=== PATIENT | male | born 1975 | race Caucasian/White ===

== ENCOUNTER 2016-05-16 12:38 | Observation (INO) | payer OTHER ==
[~2016-05-16] VITALS: Ht 177.8 cm; Wt 100.0 kg
[~2016-05-16 12:38] MED LIST: LACTATED RINGER'S 1000 ML INJ 1,000 ML IV ONE; ONDANSETRON HCL 4 MG/2 ML VIAL IV PUSH ONE; PROPOFOL 200 MG/20 ML AMP IV ONE
[2016-05-16 12:40] VITALS: BP 141/76; PULSE 74; RESP 16; TEMP 98.2; O2SAT 98
--- NOTE | 2016-05-16 12:58 | PD ---
HPI Chief Complaint: Laceration/Skin Injury Time Seen by Provider: 12:58 Travel History International Travel<30 days: No Contact w/Intl Traveler<30days: No Traveled to known affect area: No History of Present Illness HPI 41-year-old male presents to emergency department with worker's comp injury. 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 Bleeding is controlled upon arrival. Pain is currently minimal. Patient denies numbness or tingling distal to the wound. Patient denies any loss of function distal to the wound. He has no other injury. Patient last ate or drank approximately 6 AM this morning. Patient is unknown his last tetanus shot. Patient has no known drug allergies. FORMERLY [facility], [facility] Past Medical History Tetanus Vaccination: Unknown Social History Alcohol Use: Yes Tobacco Use: No Substance Use: No Allergies-Medications (Allergen,Severity, Reaction): Coded Allergies: No Known Allergies (Unverified , 05/16/16) Reported Meds & Prescriptions Reported Meds & Active Scripts Active No Active Prescriptions or Reported Medications Review of Systems Except as stated in HPI: all other systems reviewed are Neg General / Constitutional: No: Fever Eyes: No: Visual changes HENT: No: Headaches Cardiovascular: No: Chest Pain or Discomfort Respiratory: No: Shortness of Breath Gastrointestinal: No: Abdominal Pain Genitourinary: No: Dysuria Musculoskeletal: No: Pain Skin: Positive Lesions (laceration right posterior lateral elbow.), No Rash Neurologic: No: Weakness Psychiatric: No: Depression Endocrine: No: Polydipsia Hematologic/Lymphatic: No: Easy Bruising Physical Exam Narrative GENERAL: Patient appears in no acute distress. SKIN: Warm and dry. Normal color. Normal turgor. Patient has a foreign half centimeter linear laceration diagonally across the posterior lateral elbow. It appears to be full-thickness and possibly into the joint space between the distal humerus and radius. Bleeding is minimal at this time. No foreign body or material noted. HEAD: Atraumatic. Normocephalic. EYES: Pupils equal and round. No scleral icterus. No injection or drainage. ENT: No nasal bleeding or discharge. Mucous membranes pink and moist. Pharynx is clear. NECK: Trachea midline. No JVD. CARDIOVASCULAR: Regular rate and rhythm. RESPIRATORY: No accessory muscle use. Clear to auscultation. Breath sounds equal bilaterally. GASTROINTESTINAL: Abdomen soft, non-tender, nondistended. Hepatic and splenic margins not palpable. MUSCULOSKELETAL: Extremities without clubbing, cyanosis, or edema. No obvious deformities. Patient has full range of motion of the right upper extremity neurovascular exam is unremarkable in the right upper extremity. International Affairs Vice President strength is normal. Supination and pronation of the right upper extremity is normal. NEUROLOGICAL: Awake and alert. No obvious cranial nerve deficits. Motor grossly within normal limits. Five out of 5 muscle strength in the arms and legs. Normal speech. PSYCHIATRIC: Appropriate mood and affect; insight and judgment normal. Data Data Last Documented VS Vital Signs Date Time Temp Pulse Resp B/P Pulse Ox O2 Delivery O2 Flow Rate FiO2 05/16/16 12:40 98.2 74 16 141/76 98 Orders Elbow, Complete (4 Vws) (05/16/16 13:20) Ice/Cold Pack (05/16/16 13:20) Basic Metabolic Panel (Bmp) (05/16/16 13:20) Complete Blood Count With Diff (05/16/16 13:20) Iv Access Insert/Monitor (05/16/16 13:20) Cefazolin Inj (Ancef Inj) (05/16/16 13:30) Tetanus/Diphtheria Tox Adult (Tetanus/Di (05/16/16 13:30) Place In Observation (05/16/16 ) Vital Signs (Adult) Q4H (05/16/16 16:09) Diet Npo (05/16/16 Dinner) Sodium Chlor 0.9% 1000 Ml Inj (Ns 1000 M (05/16/16 17:00) Sodium Chloride 0.9% Flush (Ns Flush) (05/16/16 16:15) Sodium Chloride 0.9% Flush (Ns Flush) (05/16/16 21:00) Acetaminophen (Tylenol) (05/16/16 16:15) Ondansetron Inj (Zofran Inj) (05/16/16 16:15) Prochlorperazine Supp (Compazine Supp) (05/16/16 16:15) Bisacodyl Supp (Dulcolax Supp) (05/16/16 16:15) Basic Metabolic Panel (Bmp) (05/17/16 06:00) Comprehensive Metabolic Panel (05/17/16 06:00) Ot Request For Service (05/16/16 16:09) Scd Bilateral/Knee High KM.BID (05/16/16 16:09) Jules Bilateral/Knee High KM.QSHIFT (05/16/16 16:09) Consult Orthopedic (05/16/16 ) Admit Order (Ed Use Only) (05/16/16 16:10) Labs Laboratory Tests Test 05/16/16 13:55 White Blood Count 5.8 TH/MM3 Red Blood Count 4.77 MIL/MM3 Hemoglobin 13.7 GM/DL Hematocrit 40.3 % Mean Corpuscular Volume 84.5 FL Mean Corpuscular Hemoglobin 28.7 PG Mean Corpuscular Hemoglobin 33.9 % Concent Red Cell Distribution Width 12.8 % Platelet Count 262 TH/MM3 Mean Platelet Volume 8.5 FL Neutrophils (%) (Auto) 63.8 % Lymphocytes (%) (Auto) 28.8 % Monocytes (%) (Auto) 5.4 % Eosinophils (%) (Auto) 1.5 % Basophils (%) (Auto) 0.5 % Neutrophils # (Auto) 3.7 TH/MM3 Lymphocytes # (Auto) 1.7 TH/MM3 Monocytes # (Auto) 0.3 TH/MM3 Eosinophils # (Auto) 0.1 TH/MM3 Basophils # (Auto) 0.0 TH/MM3 CBC Comment DIFF FINAL Differential Comment Sodium Level 139 MEQ/L Potassium Level 4.0 MEQ/L Chloride Level 104 MEQ/L Carbon Dioxide Level 28.1 MEQ/L Anion Gap 7 MEQ/L Blood Urea Nitrogen 10 MG/DL Creatinine 0.84 MG/DL Estimat Glomerular Filtration 101 ML/MIN Rate Random Glucose 89 MG/DL Calcium Level 8.9 MG/DL [facility] Medical Decision Making Medical Screen Exam Complete: Yes Emergency Medical Condition: Yes Differential Diagnosis Worker's comp injury. Laceration to the right elbow. Possible involvement of the joint space. Narrative Course Patient is medically stable at time of exam. Patient is discussed and examined with Dr. Patrick who recommends orthopedic evaluation. X-ray is obtained of the right elbow. IV access is obtained, and CBC and basic metabolic panel is ordered. Patient is given a tetanus 0.5 mg IM. Patient is given 2 g of Ancef IV. Call was placed to Dr. Montano, the orthopedic on-call the patient is discussed. Dr. Montano said he would like the patient admitted for OR closure. Call was placed to the hospitalist. Patient was discussed with Dr. Estrella, who admitted the patient to observation. Diagnosis Primary Impression: Laceration of elbow, right, complicated Qualified Code: S51.011A - Laceration of elbow, right, complicated, initial encounter Admitting Information Admitting Physician Requests: Observation Scripts No Active Prescriptions or Reported Meds Condition: Stable Sunday Olmos May 16, 2016 12:58
--- NOTE | 2016-05-16 13:14 | PD ---
Data Data Last Documented VS Vital Signs Date Time Temp Pulse Resp B/P Pulse Ox O2 Delivery O2 Flow Rate FiO2 05/16/16 12:40 98.2 74 16 141/76 98 Orders Elbow, Complete (4 Vws) (05/16/16 13:20) Ice/Cold Pack (05/16/16 13:20) Basic Metabolic Panel (Bmp) (05/16/16 13:20) Complete Blood Count With Diff (05/16/16 13:20) Iv Access Insert/Monitor (05/16/16 13:20) Cefazolin Inj (Ancef Inj) (05/16/16 13:30) Tetanus/Diphtheria Tox Adult (Tetanus/Di (05/16/16 13:30) Place In Observation (05/16/16 ) Vital Signs (Adult) Q4H (05/16/16 16:09) Diet Npo (05/16/16 Dinner) Sodium Chlor 0.9% 1000 Ml Inj (Ns 1000 M (05/16/16 17:00) Sodium Chloride 0.9% Flush (Ns Flush) (05/16/16 16:15) Sodium Chloride 0.9% Flush (Ns Flush) (05/16/16 21:00) Acetaminophen (Tylenol) (05/16/16 16:15) Ondansetron Inj (Zofran Inj) (05/16/16 16:15) Prochlorperazine Supp (Compazine Supp) (05/16/16 16:15) Bisacodyl Supp (Dulcolax Supp) (05/16/16 16:15) Basic Metabolic Panel (Bmp) (05/17/16 06:00) Comprehensive Metabolic Panel (05/17/16 06:00) Ot Request For Service (05/16/16 16:09) Scd Bilateral/Knee High KM.BID (05/16/16 16:09) Jules Bilateral/Knee High KM.QSHIFT (05/16/16 16:09) Consult Orthopedic (05/16/16 ) Admit Order (Ed Use Only) (05/16/16 16:10) Labs Laboratory Tests Test 05/16/16 13:55 White Blood Count 5.8 TH/MM3 Red Blood Count 4.77 MIL/MM3 Hemoglobin 13.7 GM/DL Hematocrit 40.3 % Mean Corpuscular Volume 84.5 FL Mean Corpuscular Hemoglobin 28.7 PG Mean Corpuscular Hemoglobin 33.9 % Concent Red Cell Distribution Width 12.8 % Platelet Count 262 TH/MM3 Mean Platelet Volume 8.5 FL Neutrophils (%) (Auto) 63.8 % Lymphocytes (%) (Auto) 28.8 % Monocytes (%) (Auto) 5.4 % Eosinophils (%) (Auto) 1.5 % Basophils (%) (Auto) 0.5 % Neutrophils # (Auto) 3.7 TH/MM3 Lymphocytes # (Auto) 1.7 TH/MM3 Monocytes # (Auto) 0.3 TH/MM3 Eosinophils # (Auto) 0.1 TH/MM3 Basophils # (Auto) 0.0 TH/MM3 CBC Comment DIFF FINAL Differential Comment Sodium Level 139 MEQ/L Potassium Level 4.0 MEQ/L Chloride Level 104 MEQ/L Carbon Dioxide Level 28.1 MEQ/L Anion Gap 7 MEQ/L Blood Urea Nitrogen 10 MG/DL Creatinine 0.84 MG/DL Estimat Glomerular Filtration 101 ML/MIN Rate Random Glucose 89 MG/DL Calcium Level 8.9 MG/DL MDM Supervised Visit with ALFRED: Yes Narrative Course I, Dr. Patrick, have reviewed the advance practice practitioner's documentation and am in agreement, met with the patient face to face, made the diagnosis, and the medical decision making was done by me. *My assessment and Findings: I reviewed the documentation from ALFRED, Patient on my examination there is at least 3 layers involved in this laceration, skin, fascia and a deep tissue either tendon or possibly the joint capsule itself. Orthopedics has been consulted, Ancef is given. Diagnosis Primary Impression: Laceration of elbow, right, complicated Qualified Code: S51.011A - Laceration of elbow, right, complicated, initial encounter Admitting Information Admitting Physician Requests: Observation Scripts No Active Prescriptions or Reported Meds Condition: Stable Puneet Patrick MD May 16, 2016 13:14
[2016-05-16] MEDS ORDERED: TETANUS/DIPHTHERIA TOXOID ADULT 0.5 ML VIAL IM ONE (13:30)
--- NOTE | 2016-05-16 14:07 | RADRPT ---
EXAM DATE/TIME: 05/16/2016 13:43 [facility] COMPARISON: No previous studies available for comparison. INDICATIONS : Patient states laceration from a metal object to the posterior elbow. MEDICAL HISTORY : None. SURGICAL HISTORY : None. ENCOUNTER: Initial ACUITY: 1 day PAIN SCORE: 4/10 LOCATION: Right Elbow FINDINGS: Multiple view examination of the right elbow demonstrates no soft tissue swelling, joint effusion, or fracture. The osseous structures are in normal alignment. Dressing is identified over the olecranon process. There is no evidence radiopaque foreign body. Bony mineralization is normal. CONCLUSION: No evidence of acute bony abnormality or radiopaque foreign body. Demetrius Alberts MD on May 16, 2016 at 14:04 Board Certified Radiologist. This report was verified electronically.
[2016-05-16 14:17] LABS: AUTOMATED NEUTROPHIL # 3.7 TH/MM3 (1.8-7.7); BASOPHIL % 0.5 % (0.0-2.0); EOSINOPHIL # 0.1 TH/MM3 (0-0.4); EOSINOPHIL % 1.5 % (0.0-4.0); HEMATOCRIT 40.3 % (39.0-51.0); HEMO FLAGS DIFF FINAL; LYMPH % 28.8 % (9.0-44.0); LYMPHOCYTE # 1.7 TH/MM3 (1.0-4.8); MEAN CELL VOLUME 84.5 FL (80.0-100.0); MEAN CORPUSCULAR HEMOGLOBIN 28.7 PG (27.0-34.0); MEAN CORPUSCULAR HGB CONC 33.9 % (32.0-36.0); MONO % 5.4 % (0.0-8.0); NEUT % 63.8 % (16.0-70.0); PLATELET COUNT 262 TH/MM3 (150-450); RED BLOOD COUNT 4.77 MIL/MM3 (4.50-5.90); RED CELL DISTRIBUTION WIDTH 12.8 % (11.6-17.2); WHITE BLOOD COUNT 5.8 TH/MM3 (4.0-11.0)
[2016-05-16 14:29] LABS: BICARBONATE 28.1 MEQ/L (21.0-32.0)
[2016-05-16] MEDS ORDERED: ONDANSETRON HCL 4 MG/2 ML VIAL IVP PRN (16:15)
[2016-05-16] MEDS ORDERED: SODIUM CHLORIDE 0.9% FLUSH 5 ML FLUSH FLUSH PRN (16:15)
[2016-05-16] MEDS ORDERED: BISACODYL 10 MG SUPP PR PRN (16:15)
[2016-05-16] MEDS ORDERED: ACETAMINOPHEN 325 MG TAB PO PRN (16:15)
[2016-05-16] MEDS ORDERED: PROCHLORPERAZINE 25 MG SUPP PR PRN (16:15)
[2016-05-16] MEDS ORDERED: ACETAMINOPHEN/HYDROcodone 325 MG/5 MG TAB PO PRN (16:45)
[2016-05-16] MEDS ORDERED: NALOXONE HCL 0.4 MG/ML AMP IV PRN (16:45)
[2016-05-16] MEDS ORDERED: HYDROmorphone HCL PF 1 MG/ML VIAL IV PRN (16:45)
[2016-05-16] MEDS ORDERED: ACETAMINOPHEN/HYDROcodone 325 MG/7.5 MG TAB PO PRN (16:45)
--- NOTE | 2016-05-16 16:45 | HHI.HP ---
[facility] Primary [facility] Physician No Primary Care Physician Admission Diagnosis Deep Laceration Right Elbow Diagnoses: Chief Complaint: pain post lacaration at work Travel History International Travel<30 Days: No Contact w/Intl Traveler <30 Da: No Traveled to Known Affected Are: No History of Present Illness 41-year-old male without PMH presents to emergency department with worker's comp injury. 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 Bleeding is controlled upon arrival. Pain is currently minimal. Patient denies numbness or tingling distal to the wound. he can move his fingers. Patient denies any loss of function distal to the wound. He has no other injury. Patient last ate or drank approximately 6 AM this morning. Patient is unknown his last tetanus shot. he did receive tetanus vaccination in the ED and also received IV abx Patient has no known drug allergies. Ortho was consulted and plan to keep patient NPO as will go to OR today. Review of Systems Except as stated in HPI: all other systems reviewed are Neg 12 system ROS reviewed and negative except as stated in HPI Past Family Social History Past Medical History Healthy Past Surgical History Denies having any surgeries in the past Reported Medications doesn't take any medications Allergies: Coded Allergies: No Known Allergies (Unverified , 05/16/16) Family History Parents are healthy Social History Denies alcohol use, illicit drug use or tobacco use. Physical Exam Vital Signs Vital Signs Date Time Temp Pulse Resp B/P Pulse Ox O2 Delivery O2 Flow Rate FiO2 05/16/16 12:40 98.2 74 16 141/76 98 Physical Exam GENERAL: This is a well-nourished, well-developed patient, in no apparent distress. SKIN: Right elbow laceration with dressing placed in the ER HEAD: Atraumatic. Normocephalic. No temporal or scalp tenderness. EYES: Pupils equal round and reactive. Extraocular motions intact. No scleral icterus. No injection or drainage. ENT: Nose without bleeding, purulent drainage or septal hematoma. Throat without erythema, tonsillar hypertrophy or exudate. Uvula midline. Airway patent. NECK: Trachea midline. No JVD or lymphadenopathy. Supple, nontender, no meningeal signs. CARDIOVASCULAR: Regular rate and rhythm without murmurs, gallops, or rubs. RESPIRATORY: Clear to auscultation. Breath sounds equal bilaterally. No wheezes , rales, or rhonchi. GASTROINTESTINAL: Abdomen soft, non-tender, nondistended. No hepato-splenomegaly , or palpable masses. No guarding. MUSCULOSKELETAL: Extremities without clubbing, cyanosis, or edema. No joint tenderness, effusion, or edema noted. No calf tenderness. Negative Homans sign bilaterally. NEUROLOGICAL: Awake and alert. Cranial nerves II through XII intact. Motor and sensory grossly within normal limits. Five out of 5 muscle strength in all muscle groups. Normal speech. Laboratory Laboratory Tests Test 05/16/16 13:55 White Blood Count 5.8 Red Blood Count 4.77 Hemoglobin 13.7 Hematocrit 40.3 Mean Corpuscular Volume 84.5 Mean Corpuscular Hemoglobin 28.7 Mean Corpuscular Hemoglobin 33.9 Concent Red Cell Distribution Width 12.8 Platelet Count 262 Mean Platelet Volume 8.5 Neutrophils (%) (Auto) 63.8 Lymphocytes (%) (Auto) 28.8 Monocytes (%) (Auto) 5.4 Eosinophils (%) (Auto) 1.5 Basophils (%) (Auto) 0.5 Neutrophils # (Auto) 3.7 Lymphocytes # (Auto) 1.7 Monocytes # (Auto) 0.3 Eosinophils # (Auto) 0.1 Basophils # (Auto) 0.0 CBC Comment DIFF FINAL Differential Comment Sodium Level 139 Potassium Level 4.0 Chloride Level 104 Carbon Dioxide Level 28.1 Anion Gap 7 Blood Urea Nitrogen 10 Creatinine 0.84 Estimat Glomerular Filtration 101 Rate Random Glucose 89 Calcium Level 8.9 Result Diagram: 05/16/16 1355 05/16/16 1355 Assessment and Plan Assessment and Plan Worker's comp injury. Laceration to the right elbow. Possible involvement of the joint space. Patient is medically stable, labs normal X-ray is obtained of the right elbow. Received tetanus 0.5 mg IM in the ED Patient is given 2 g of Ancef IV. Ortho was consulted Dr. Montano, Dr. Montano recommends NPO and will take the patient to OR for closure today . DVT ppx SCD/teds Shraddha Estrella MD May 16, 2016 16:45
[2016-05-16] MEDS: SODIUM CHLOR 0.9% 1000 ML INJ 1,000 ML IV SCH (17:00)
[2016-05-16] MEDS ORDERED: GENTAMICIN SULFATE 80 MG/2 ML VIAL ONE (17:11)
[2016-05-16] MEDS ORDERED: *MEPERIDINE 25 MG INJ VIAL PERIprocedural Use ONLY ONE (19:21)
[2016-05-16] MEDS ORDERED: fentaNYL CITRATE 250 MCG/5 ML AMP ONE (19:24)
--- NOTE | 2016-05-16 20:02 | PD.CONS ---
cc: Emery Encinas Jr., MD HPI [facility] Consult Requested By Primary Care Physician No Primary Care Physician Admission Diagnosis Deep Laceration Right Elbow Diagnoses: Chief Complaint: right elbow traumatic arthrotomy wound History of Present Illness A 41-year-old male was working with a heavy [employer] industrial tool when he accidentally cut the back of his elbow sustaining an open wound at the back and RIGHT elbow. He denies any neurovascular complaints, does report pain 6 out of 10, associated with decreased elbow extension, pain nonradiating, relieved at rest and IV pain medicine. Denies chest pain or shortness of breath. X-ray examination negative for fracture. However, examination by ED physician revealed possible arthrotomy of the RIGHT elbow joint. Review of Systems Eyes: DENIES: Blurred vision, Diplopia, Eye inflammation, Eye pain, Vision loss , Photosensitivity, Double Vision Ears, nose, mouth, throat: DENIES: Tinnitus, Hearing loss, Vertigo, Nasal discharge, Oral lesions, Throat pain, Hoarseness, Ear Pain, Running Nose, Epistaxis, Sinus Pain, Toothache, Odynophagia Respiratory: DENIES: Apneas, Cough, Snoring, Wheezing, Hemoptysis, Sputum production, Shortness of breath Cardiovascular: DENIES: Chest pain, Palpitations, Syncope, Dyspnea on Exertion , PND, Lower Extremity Edema, Orthopnea, Claudication Gastrointestinal: DENIES: Abdominal pain, Black stools, Bloody stools, Constipation, Diarrhea, Nausea, Vomiting, Difficulty Swallowing, Anorexia Genitourinary: DENIES: Sexual dysfunction, Urinary frequency, Urinary incontinence, Urgency, Hematuria, Dysuria, Nocturia, Penile Discharge, Testicular Pain, Testicular Swelling Integumentary: DENIES: Abnormal pigmentation, Nail changes, Pruritus, Rash Hematologic/lymphatic: DENIES: Bruising, Lymphadenopathy Past Family Social History Past Medical History Noncontributory Past Surgical History Noncontributory Reported Medications Noncontributory Allergies: Coded Allergies: No Known Allergies (Unverified , 05/16/16) Active Ordered Medications Current Medications Medications (Trade) Dose Ordered Sig/Serena Route Start Time Stop Time Status Last Admin (NS 1000 ml Inj) 1,000 ml @ 100 mls/hr Q10H IV 05/16/16 17:00 (NS Flush) 2 ml UNSCH PRN FLUSH 05/16/16 16:15 (NS Flush) 2 ml BID FLUSH 05/16/16 21:00 (Tylenol) 650 mg Q4H PRN PO 05/16/16 16:15 (Zofran Inj) 4 mg Q6H PRN IVP 05/16/16 16:15 (Compazine Supp) 25 mg Q12H PRN DC 05/16/16 16:15 (Dulcolax Supp) 10 mg DAILY PRN DC 05/16/16 16:15 ([place] 5-325 Mg) 1 tab Q4H PRN PO 05/16/16 16:45 ([place] 7.5-325 Mg) 1 tab Q4H PRN PO 05/16/16 16:45 (Dilaudid Pf Inj) 1 mg Q3H PRN IV 05/16/16 16:45 (Narcan Inj) 0.4 mg UNSCH PRN IV 05/16/16 16:45 Reported Meds & Active Scripts Active No Active Prescriptions or Reported Medications Family History Noncontributory Social History Noncontributory Physical Exam Vital Signs Vital Signs Date Time Temp Pulse Resp B/P Pulse Ox O2 Delivery O2 Flow Rate FiO2 05/16/16 19:45 78 12 142/92 96 Room Air 05/16/16 19:30 81 12 155/99 98 Room Air 05/16/16 19:14 97.6 92 14 152/101 97 Blow By 4 05/16/16 12:40 98.2 74 16 141/76 98 Physical Exam [email or web address] Head: Neck normocephalic atraumatic. Trachea midline. Pulmonary: normal respiratory effort. Abdomen: soft nontender Musculoskeletal exam RIGHT upper extremity- in sling, grossly neurovascularly intact, 4/5 elbow extension. intact sensation distally. 2.5cmd posterolateral elbow wound with exposed and lacerated triceps fascia. no bone exposed. mild soft tissue contamination. Bilateral lower extremity- neurovascular intact. No deformities. Intact sensation distally. 2+ palpable dorsalis pedis and posterior tibial pulses. Soft compartments. Negative Homans. Laboratory Laboratory Tests Test 05/16/16 13:55 White Blood Count 5.8 Red Blood Count 4.77 Hemoglobin 13.7 Hematocrit 40.3 Mean Corpuscular Volume 84.5 Mean Corpuscular Hemoglobin 28.7 Mean Corpuscular Hemoglobin 33.9 Concent Red Cell Distribution Width 12.8 Platelet Count 262 Mean Platelet Volume 8.5 Neutrophils (%) (Auto) 63.8 Lymphocytes (%) (Auto) 28.8 Monocytes (%) (Auto) 5.4 Eosinophils (%) (Auto) 1.5 Basophils (%) (Auto) 0.5 Neutrophils # (Auto) 3.7 Lymphocytes # (Auto) 1.7 Monocytes # (Auto) 0.3 Eosinophils # (Auto) 0.1 Basophils # (Auto) 0.0 CBC Comment DIFF FINAL Differential Comment Sodium Level 139 Potassium Level 4.0 Chloride Level 104 Carbon Dioxide Level 28.1 Anion Gap 7 Blood Urea Nitrogen 10 Creatinine 0.84 Estimat Glomerular Filtration 101 Rate Random Glucose 89 Calcium Level 8.9 Result Diagram: 05/16/16 1355 05/16/16 1355 Imaging Last 72 hours Impressions Elbow X-Ray 05/16/16 1320 Signed Impressions: Service Date/Time: Monday, May 16, 2016 13:43 - CONCLUSION: No evidence of acute bony abnormality or radiopaque foreign body. Demetrius Alberts MD Assessment & Plan Assessment and Plan 41-year-old otherwise healthy male was working with a heavy sharp Industrial tool, sustaining injury to her RIGHT elbow. X-ray examination negative. He is neurovascular intact but has weakness with elbow extension and has a possible traumatic arthrotomy Of the RIGHT elbow joint. I recommend Wound exploration with the possible elbow joint irrigation and debridement. I discussed my treatment plans as well as risks, benefits and alternatives of surgical Intervention versus nonoperative treatment. In this case, the risks of operative intervention involves bleeding, infection, risks of damage to neurovascular structures, the risk of needing further surgery, septic arthritis and the risks involved with complication from anesthesia. OR today. NPO All questions were answered. Thank you for consult. Please call with questions. Emery Encinas Jr., MD May 16, 2016 20:02 Emery Encinas Jr., MD May 16, 2016 20:02
--- NOTE | 2016-05-16 20:06 | PD.OP ---
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 Patient was found to have a large laceration on the posterior lateral aspect of right elbow involving the triceps fascia and questionable arthrotomy. Informed consent was obtained after detailed discussion of risk and benefits of surgery. Operative site was marked. Patient breath or medicine or table. IV sedation and GETA were administered by anesthesiologist. Operative arm was prepped with alcohol followed by Hibiclens and draped in usual sterile fashion. Timeout procedure was performed. Procedure began by extending the incision to better visualize and have access to the joint. There appeared to be a small rant in the capsule and a traumatic arthrotomy. A partial capsulotomy was completed and the joint was thoroughly irrigated. The joint capsule was closed with 3-0 PDS. There was significant laceration involving about 20% of the triceps fascia at the elbow. The fascia was repaired with 0 PDS sutures. the wound was thoroughly irrigated with sterile saline. At this point the wound was clean. Subcutaneous tissues closed with 3-0 PDS and skin was closed with 3-0 nylon. Sterile dressings were applied. Patient was awakened and transferred to recovery in stable condition. Needle and sponge counts were correct. POSTP-OP PLAN OF ACTIVITY Antibiotics: Ancef, vancomycin Antiocoagulation: SCD Weight bearing status: WBAT Dressing: Do not remove until RTC Dispo: expected discharge home Emery Encinas Jr., MD May 16, 2016 20:06
[2016-05-16] MEDS ORDERED: MORPHINE SULFATE 8 MG/ML INJ IV PUSH PRN (20:15)
[2016-05-16] MEDS ORDERED: SODIUM CHLORIDE 0.9% FLUSH 5 ML FLUSH IVF PRN (20:15)
[2016-05-16] MEDS ORDERED: IBUPROFEN 400 MG TAB PO PRN (20:15)
[2016-05-16] MEDS ORDERED: oxyCODONE/ACETAMINOPHEN 5 MG/325 MG TAB PO PRN ×2 (20:15)
[2016-05-16] MEDS ORDERED: KETOROLAC TROMETHAMINE 30 MG/ML (IVP) VIAL IVP ONE (20:15)
[2016-05-16] MEDS ORDERED: ONDANSETRON HCL 4 MG/2 ML VIAL IV PRN (20:15)
[2016-05-16] MEDS ORDERED: ZOLPIDEM TARTRATE 5 MG TAB PO PRN (20:15)
[2016-05-16] MEDS ORDERED: SODIUM CHLORIDE 0.9% FLUSH 5 ML FLUSH FLUSH SCH (21:00)
[2016-05-16] MEDS: DOCUSATE SODIUM 100 MG CAP PO SCH (21:00)
[2016-05-16 22:05] VITALS: BP 132/81; PULSE 87; RESP 16; TEMP 97.4; O2SAT 97
[2016-05-16] MEDS: SODIUM CHLORIDE 0.9% FLUSH 5 ML FLUSH IVF SCH (22:36)
[2016-05-17] MEDS: SODIUM CHLOR 0.9% 1000 ML INJ 1,000 ML IV SCH ×2 (00:03→11:51)
[2016-05-17 00:56] VITALS: BP 135/78; PULSE 89; RESP 18; TEMP 97.4; O2SAT 97
[2016-05-17 04:11] VITALS: BP 135/68; PULSE 90; RESP 18; TEMP 97.4; O2SAT 96
[2016-05-17] MEDS: DOCUSATE SODIUM 100 MG CAP PO SCH (07:52)
[2016-05-17] MEDS: SODIUM CHLORIDE 0.9% FLUSH 5 ML FLUSH IVF SCH (07:53)
[2016-05-17 08:00] VITALS: BP 136/92; PULSE 91; RESP 18; TEMP 99.2; O2SAT 98
--- NOTE | 2016-05-17 08:14 | HHI.DCPOC ---
Discharge Care Plan Goals to Promote Your Health * To prevent worsening of your condition and complications * To maintain your health at the optimal level Directions to Meet Your Goals Take your medications as prescribed Follow your dietary instruction Follow activity as directed Keep your appointments as scheduled Take your immunizations and boosters as scheduled If your symptoms worsen call your PCP, if no PCP go to Urgent Care Center or Emergency Room Smoking is Dangerous to Your Health. Avoid second hand smoke Call the 24-hour hour crisis hotline for domestic abuse at Shraddha Estrella MD May 17, 2016 08:14
[2016-05-17 09:42] LABS: ALT (GPT) 21 U/L (12-78); ANION GAP 8 MEQ/L (5-15); AST (GOT) 15 U/L (15-37); BICARBONATE 25.1 MEQ/L (21.0-32.0); BLOOD UREA NITROGEN 11 MG/DL (7-18); CHLORIDE 106 MEQ/L (98-107); GLOMERULAR FILTRATION RATE 95 ML/MIN (>89); POTASSIUM 4.2 MEQ/L (3.5-5.1); SODIUM (NA) 139 MEQ/L (136-145)
[2016-05-17 09:44] LABS: ALKALINE PHOSPHATASE 62 U/L (45-117); TOTAL BILIRUBIN ADULT 0.4 MG/DL (0.2-1.0)
--- NOTE | 2016-05-17 11:25 | PD.ORT.PN ---
Subjective Subjective Remarks no issues. no c/o. pain controlled. Objective Vitals Vital Signs Date Time Temp Pulse Resp B/P Pulse Ox O2 Delivery O2 Flow Rate FiO2 05/17/16 08:00 99.2 91 18 136/92 98 05/17/16 04:11 97.4 90 18 135/68 96 05/17/16 00:56 97.4 89 18 135/78 97 05/16/16 22:43 18 05/16/16 22:42 18 05/16/16 22:05 97.4 87 16 132/81 97 05/16/16 21:00 86 12 152/97 96 Room Air 05/16/16 19:45 78 12 142/92 96 Room Air 05/16/16 19:30 81 12 155/99 98 Room Air 05/16/16 19:14 97.6 92 14 152/101 97 Blow By 4 05/16/16 12:40 98.2 74 16 141/76 98 I/O 05/16/16 05/16/16 05/16/16 05/17/16 05/17/16 05/17/16 07:00 15:00 23:00 07:00 15:00 23:00 Intake Total 2200 ml 615 ml Output Total 10 ml 1100 ml Balance 2190 ml -1100 ml 615 ml Intake Oral 1200 ml IV Total 615 ml Other 1000 ml Output Urine Total 1100 ml Estimated Blood Loss 10 ml # Voids 1 Result Diagram: 05/16/16 1355 05/17/16 0807 Objective Remarks RUE: in sling. nvi. dressing CDI Assessment & Plan Assessment and Plan POD 1# right elbow I&D and triceps repair doing well IV abx- postop no dressing changes. keep sling. limited ROM ok to dc when iv abx completed f/u 1-2 wks Emery Machado Jr., MD May 17, 2016 11:25
[2016-05-17 12:00] VITALS: BP 136/77; PULSE 97; RESP 18; TEMP 97.8; O2SAT 98
[2016-05-17] MEDS ORDERED: NORC5TAB PO (12:26)
== END 2016-05-17 13:06 | disposition home or self-care (01) ==
LOC: NEPB 12:38 → NEDA 16:12 → N05A 21:58
PROVIDERS: ADMIT Hospitalist; ATTEND Hospitalist
DX: S51.011A Laceration without foreign body of right elbow, initial encounter (principal); S46.321A Laceration of muscle, fascia and tendon of triceps, right arm, initial encounter; W22.09XA Striking against other stationary object, initial encounter; Y99.0 Civilian activity done for income or pay; Z23 Encounter for immunization
CPT/HCPCS: 01710; 24341; 73080; 80048; 80053; 85025; 90471; 90714; 96365; 97165; 99284; G0378; J0690; J1580; J1885; J2175; J2405; J3010; J7030; J7120